=== PATIENT | female | born 1990 | race Two or more races ===

== ENCOUNTER 2024-08-31 09:10 | Inpatient (IN) | payer OTHER ==
[~2024-08-31] VITALS: Ht 160 cm; Wt 78.0 kg
[2024-09-22] VITALS (8 sets, daily range): BP systolic 105–130; BP diastolic 54–74
[2024-09-22] MEDS ORDERED: RINGERS SOLUTION,LACTATED 1,000 ML IV SCH (05:30)
[2024-09-22] MEDS ORDERED: IRON325 MG PO (05:51)
[2024-09-22] MEDS ORDERED: FOLIC ACID0.4 MG PO (05:51)
[2024-09-22] MEDS ORDERED: OXYTOCIN 500 ML IV SCH (06:15)
[2024-09-22 07:01] LABS: BASO % 0.4 % (0.1-1.2); EOS # 0.04 (0.04-0.54); EOS % 0.4 % (0.7-7.0); HEMATOCRIT 35.6 % (34.1-44.9); HEMOGLOBIN 12.1 g/dL (11.2-15.7); LYMPH # 2.49 (1.18-3.74); LYMPH % 26.4 % (19.3-53.1); MEAN CORPUSCULAR HEMOGLOBIN 29.6 pg (25.6-32.2); MONO # 0.71 (0.24-0.82); MONO % 7.5 % (4.7-12.5); NEUT # 6.08 (1.56-6.13); NEUT % 64.7 % (34.0-71.1); PLATELET COUNT 191 K/uL (163-369); RED BLOOD COUNT 4.09 M/uL (3.93-5.22); RED CELL DISTRIBUTION WIDTH 12.9 % (11.6-14.4); URINE APPEARANCE Clear; URINE BILIRRUBIN Negative (NEGATIVE); URINE BLOOD Negative; URINE COLOR Yellow; URINE GLUCOSE Negative (NEGATIVE); URINE KETONE Negative (NEGATIVE); URINE LEUKOCYTE Large; URINE NITRATE Negative; URINE PROTEIN Negative (NEGATIVE); URINE UROBILINOGEN 0.2 E.U./dl
[2024-09-22] MEDS ORDERED: ERYTHROMYCIN BASE OPHT 1GM EACH TUBE OP ONE (07:01)
[2024-09-22] MEDS ORDERED: LIDOCAINE HCL 1% 10ML VIAL ONE (07:02)
[2024-09-22] MEDS ORDERED: OXYTOCIN 20 UNITS/1000ML RL PIGGYBAG IV ONE (07:02)
[2024-09-22] MEDS ORDERED: CHLORHEXIDINE GLUCONATE 120 ML BOTTLE TOP ONE ×2 (07:02→07:45)
[2024-09-22 07:05] LABS: URINE BACTERIA 624.1 uL (0.0-1933); URINE EPITHELIAL CELLS 34.6 uL (0.0-38.8); URINE RBC 2.2 uL (0.0-20.8); URINE WBC 131.5 uL (0.0-23.2)
[2024-09-22 07:13] LABS: INR 0.94; PARTIAL THROMBOPLASTIN TIME 26.5 SECONDS (22.0-34.0); PROTHROMBIN TIME 10.3 SECONDS (9.0-11.5)
[2024-09-22] MEDS ORDERED: IBUprofen 800 MG TABLET PO PRN (07:45)
[2024-09-22] MEDS ORDERED: ACETAMINOPHEN 500 MG GEL..CAP PO PRN (07:45)
[2024-09-22 07:57] LABS: ALBUMIN 2.7 gm/dL (3.4-5.0); BILIRUBIN TOTAL 0.36 mg/dL (0.3-1.2); CALCIUM 8.4 mg/dL (8.5-10.1); CREATININE SERUM 0.51 mg/dL (0.55-1.02); GFR 139.75; GLOBULINA 3.9 G/DL (2.4-3.5); POTASSIUM 4.35 mEq/L (3.5-5.1); TOTAL PROTEIN 6.6 gm/dL (6.4-8.2)
[2024-09-22] MEDS ORDERED: BENZOCAINE/MENTHOL 90 ML BOTTLE TOP SCH (09:00)
[2024-09-22] MEDS ORDERED: HYDROCORTISONE 2.5% 30 GM TUBE RECTAL SCH ×2 (09:00→13:51)
[2024-09-23 00:53] VITALS: BP 114/73
[2024-09-23 01:29] LABS: BASO % 0.4 % (0.1-1.2); EOS # 0.12 (0.04-0.54); EOS % 0.7 % (0.7-7.0); HEMATOCRIT 36.3 % (34.1-44.9); LYMPH # 3.51 (1.18-3.74); LYMPH % 20.4 % (19.3-53.1); MEAN CORPUSCULAR HEMOGLOBIN 28.9 pg (25.6-32.2); MONO # 1.22 (0.24-0.82); MONO % 7.1 % (4.7-12.5); NEUT # 12.21 (1.56-6.13); NEUT % 70.9 % (34.0-71.1); PLATELET COUNT 198 K/uL (163-369); RED BLOOD COUNT 4.15 M/uL (3.93-5.22); RED CELL DISTRIBUTION WIDTH 12.9 % (11.6-14.4)
[2024-09-23 08:50] VITALS: BP 100/68
[2024-09-23 16:00] VITALS: BP 109/71
[2024-09-24 00:06] VITALS: BP 120/82
[2024-09-24 08:00] VITALS: BP 114/78
== END 2024-09-24 11:55 | disposition home or self-care (01) | DRG 807 ==
LOC: OB/GYN 09-22 05:19 → LDR 09-22 05:19 → OB/GYN 09-22 08:28 → LDR 09-27 09:09
PROVIDERS: ADMIT Specialist; ATTEND Specialist
PROC: 10E0XZZ Delivery of Products of Conception, External Approach (ICD-10-PCS; principal; 2024-09-22)
PROC: 4A1HXCZ Monitoring of Products of Conception, Cardiac Rate, External Approach (ICD-10-PCS; 2024-09-22)
DX: O80 Encounter for full-term uncomplicated delivery (principal); Z37.0 Single live birth; Z3A.39 39 weeks gestation of pregnancy